=== PATIENT | male | born 1960 | race Caucasian/White ===

== ENCOUNTER 2022-08-17 13:01 | Emergency (ER) | payer OTHER, SELFPAY ==
[2022-08-17 13:56] VITALS: BP 160/82; PULSE 74; RESP 16; TEMP 36.5; O2SAT 100
--- NOTE | 2022-08-17 14:32 | ED.GENADULT ---
HPI - General Adult General Chief complaint: Animal Bite Stated complaint: dog bite to left thigh Time Seen by Provider: 08/17/22 14:27 Source: RN notes reviewed History of Present Illness HPI narrative: Patient presents emergency department from home for a dog bite. 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 States that he did bite him through the pants he states he has some small abrasions and bruising over his left posterior thigh is unsure of his last tetanus shot. States the police report was filed and they are going to be quarantining the dog as animal control is also notified patient states it was a dog at the house owned by an license issuer. He states he did take ibuprofen for the pain states he is a diabetic denies any other injury Related Data Allergies Allergy/AdvReac Type Severity Reaction Status Date / Time codeine Allergy Mild Verified 05/18/09 09:41 penicillin G Allergy Mild Verified 05/18/09 09:41 Review of Systems Review of Systems: Gen.: Denies fevers or chills Musculoskeletal reports left thigh pain Neuro: Denies numbness, tingling, weakness Skin: D see HPI Endo: Reports diabetes mellitus [facility] Past Medical History Medical History (Updated 08/17/22 @ 14:36 by Kai Franco DO) Diabetes mellitus Social History Social History (Updated 08/17/22 @ 14:34 by Kai Franco DO) Smoking status: Never smoker Exam Narrative: APPEARANCE: No acute distress, nontoxic, resting in bed Eyes: EOMI HEENT: Normocephalic, atraumatic, RESPIRATORY: No respiratory distress MUSCULOSKELETAl: No tenderness of the left hip or knee with full range of motion of both NEURO: Awake and alert. Following commands, speech normal, no focal deficits SKIN:: Warm, dry. Normal Color n superficial abrasions with ecchymosis over the left posterior thigh consistent with dog bite no deep open or gaping wounds no surrounding erythema Course Vital Signs Vital signs: Vital Signs Temperature 97.7 F 08/17/22 13:56 Pulse Rate 74 08/17/22 13:56 Respiratory Rate 16 08/17/22 13:56 Blood Pressure 160/82 H 08/17/22 13:56 Pulse Oximetry 100 08/17/22 13:56 Oxygen Delivery Room Air 08/17/22 13:56 Temperature 97.7 F 08/17/22 13:56 Pulse Rate 74 08/17/22 13:56 Respiratory Rate 16 08/17/22 13:56 Blood Pressure 160/82 H 08/17/22 13:56 Pulse Oximetry 100 08/17/22 13:56 Oxygen Delivery Room Air 08/17/22 13:56 Medical Decision Making MDM Narrative Medical decision making narrative: Patient presents for dog bite to left thigh the police were contacted as well as animal control and they are monitoring the dog patient is up-to-date on his tetanus he is allergic to penicillin and secondary this we will use doxycycline and clindamycin tetanus will be given in the ER there is no gaping wounds the wound was cleaned in the ER and will be discharged follow-up as an Vital Signs Vital Signs: Vital Signs Temperature 97.7 F 08/17/22 13:56 Pulse Rate 74 08/17/22 13:56 Respiratory Rate 16 08/17/22 13:56 Blood Pressure 160/82 H 08/17/22 13:56 Pulse Oximetry 100 08/17/22 13:56 Oxygen Delivery Room Air 08/17/22 13:56 Temperature 97.7 F 08/17/22 13:56 Pulse Rate 74 08/17/22 13:56 Respiratory Rate 16 08/17/22 13:56 Blood Pressure 160/82 H 08/17/22 13:56 Pulse Oximetry 100 08/17/22 13:56 Oxygen Delivery Room Air 08/17/22 13:56 Discharge Plan Discharge Clinical Impression: Dog bite of left thigh Patient Disposition: Home, Self-Care Condition: Stable Additional Instructions: Return for increasing pain signs of infection fever or any other symptoms of concern Prescriptions: New clindamycin HCl 300 mg capsule 300 mg PO Q8H 10 Days Qty: 30 0RF doxycycline hyclate 100 mg capsule 100 mg PO BID 10 Days Qty: 20 0RF Follow-up/Referrals: Kimmy,Alexandr Rush MD [Primary
[2022-08-17] MEDS: DOXYCYCLINE HYCLATE 100 MG TABLET PO (14:38)
[2022-08-17] MEDS: CLINDAMYCIN HCL 150 MG CAP 300 MG PO (14:38)
[2022-08-17] MEDS: TETANUS,DIPHTHERIA,AC PERTUSSIS ADULT (0.5 ML) BOOSTRIX IM (14:39)
== END 2022-08-17 14:57 | disposition home or self-care (01) ==
LOC: ANHED 14:43
PROVIDERS: Emergency Provider Emergency Medicine; PCP Family Medicine
DX: S71.152A Open bite, left thigh, initial encounter (principal); W54.0XXA Bitten by dog, initial encounter; E11.9 Type 2 diabetes mellitus without complications; Z23 Encounter for immunization
CPT/HCPCS: 90471; 90715; 99283; A9270